=== PATIENT | female | born 1935 | race Caucasian/White ===

== ENCOUNTER 2017-01-16 15:27 | Inpatient (IN) | payer MEDICARE, OTHER ==
[~2017-01-16] VITALS: Ht 167.6 cm; Wt 99.6 kg
[2017-01-16] MEDS ORDERED: LEVO25TA5 PO (15:46)
[2017-01-16] MEDS ORDERED: ALEN70SO PO (15:49)
[2017-01-16] MEDS ORDERED: AMLO10TA2 PO (15:49)
[2017-01-16] MEDS ORDERED: PRIL20TA2 PO (15:49)
[2017-01-16] MEDS ORDERED: ATEN100T PO (15:49)
[2017-01-16] MEDS ORDERED: LISI20TA3 PO (15:49)
[2017-01-16] MEDS ORDERED: ASPI81TA85 PO (15:49)
[2017-01-16] MEDS ORDERED: ONDANSETRON 4MG/2ML VIAL (J2405) IV ONE (16:45)
[2017-01-16] MEDS ORDERED: NS 1,000 ML IV ONE ×3 (16:45→18:30)
[2017-01-16 17:34] LABS: ALBUMIN 3.8 GM/DL (3.2-5.2); ALBUMIN/GLOBULIN RATIO 0.88 (1.00-1.93); ALKALINE PHOSPHATASE 73 U/L (45-117); ALT/SGPT 23 U/L (12-78); AMYLASE 58 U/L (25-115); ANION GAP 13 MEQ/L (8-16); AST/SGOT 12 U/L (15-37); BILIRUBIN,DIRECT 0.2 MG/DL (0.0-0.2); BLOOD UREA NITROGEN 38 MG/DL (7-18); CALCIUM LEVEL 8.6 MG/DL (8.8-10.2); CARBON DIOXIDE LEVEL 22 MEQ/L (21-32); CHLORIDE LEVEL 102 MEQ/L (98-107); CREATININE FOR GFR 1.49 MG/DL (0.55-1.02); GLOMERULAR FILTRATION RATE 35.8 (>32); GLUCOSE, FASTING 210 MG/DL (83-110); POTASSIUM SERUM 3.8 MEQ/L (3.5-5.1); SODIUM LEVEL 137 MEQ/L (136-145); TOTAL PROTEIN 8.1 GM/DL (6.4-8.2)
[2017-01-16] MEDS ORDERED: LANS30CA PO (17:59)
[2017-01-16] MEDS ORDERED: ALEN70TA39 PO (18:01)
[2017-01-16 18:08] LABS: ADD MANUAL DIFFER YES; DIFF SLIDE NUMBER 284; MEAN CORPUSCULAR HEMOGLOBIN 30.4 pg (27.0-33.0); MEAN CORPUSCULAR HGB CONC 33.1 g/dl (32.0-36.5); MEAN CORPUSCULAR VOLUME 91.8 fl (80.0-96.0); PLATELET COUNT, AUTOMATED 269 k/mm3 (150-450); WHITE BLOOD COUNT 12.1 K/mm3 (4.0-10.0)
--- NOTE | 2017-01-16 18:08 | REP ---
AP PORTABLE CHEST: 01/16/2017. Comparison: None. Clinical history: Vomiting and diarrhea. Findings: Lungs are mildly hyperinflated with underlying interstitial fibrosis and COPD. Pulmonary arteries mildly prominent. There is no pleural effusion, dense consolidation or parenchymal mass. No pulmonary nodules are seen. No apical scarring or pneumothorax. Heart size not enlarged for this portable technique. The aorta is mildly tortuous at the arch. Airway intact. No mediastinal or hilar mass. The bony thorax shows no acute finding. AC joints and shoulder joints with degenerative change. No free air. Impression: 1. COPD and some fibrotic changes with gross cardiomegaly, vascular redistribution or pulmonary edema. No visible effusion. Signed by Luc Carver MD 01/16/2017 09:26 P
[2017-01-16 18:12] LABS: BANDS 23 % (< 11)
[2017-01-16] MEDS ORDERED: PIPERACILLIN/TAZOBACTAM SOD 4.5 GM in D5W MINI-BAG PLUS 50 ML IV ONE (18:30)
--- NOTE | 2017-01-16 18:44 | ECGEPIP ---
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
[2017-01-16 18:47] LABS: INR 0.94
[2017-01-16 18:50] LABS: ABG BASE EXCESS -4.2 (-2.0-2.0); ABG PARTIAL PRESSURE CO2 34.9 mmHg (35.0-45.0); ABG PARTIAL PRESSURE O2 70.6 mmHg (75.0-100.0); ABG TOTAL CO2 21.1 MEQ/L (23.0-31.0); ABG pH (ARTERIAL) 7.377 UNITS (7.350-7.450)
[2017-01-16] MEDS ORDERED: NS 1,000 ML IV SCH (18:51)
[2017-01-16] MEDS ORDERED: ACETAMINOPHEN TAB 650MG DOSE (2X325MG) PO PRN (19:00)
[2017-01-16] MEDS ORDERED: ONDANSETRON 4MG/2ML VIAL (J2405) IV PRN (19:00)
--- NOTE | 2017-01-16 19:24 | HPEPDOC ---
Medical History and Physical Date of Admission Jan 16, 2017 at 18:51 History and Physical PRIMARY CARE PROVIDER: PCP in [place] ATTENDING: Dr. Abbi Marmolejo CHIEF COMPLAINT: Nausea/vomiting/diarrhea HISTORY OF PRESENT ILLNESS: This is a 81-year-old female past history of hypertension who presents complaining of nausea/vomiting/diarrhea. Patient states she was at a family reunion yesterday when she had macaroni and cheese salad as well as chicken wings. Patient states that night she started to have abdominal discomfort. This morning she started to have nausea/nonbilious nonbloody vomiting, as well as watery diarrhea. No hematochezia or melanotic stools. Patient denies any abdominal pain at this point. The nausea vomiting and diarrhea have subsided. Patient denies any chest pain/redness of breath/palpitations. States she had a previous episode of food poisoning when she was in [place] last year. In the ED patient was found to be very dehydrated, with a lactic acid of 4.1. She has been started on IV fluids as well as Zosyn. PAST MEDICAL HISTORY: As per HPI PAST SURGICAL HISTORY: Breast lumpectomy SOCIAL HISTORY: Tobacco, alcohol, illicit drug use. 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 FAMILY HISTORY: Noncontributory ALLERGIES: Please see below. REVIEW OF SYSTEMS: HEENT: Denies sore throat/headache CARDIOVASCULAR: Denies chest pain/palpitations RESPIRATORY: Denies shortness of breath/cough GASTROINTESTINAL: + nausea/vomiting GENITOURINARY: Denies dysuria/urinary urgency. MUSCULOSKELETAL: Denies myalgias/arthralgias NEUROLOGICAL: Denies any focal weakness HOME MEDICATIONS: Please see below. PHYSICAL EXAMINATION: Vitals: (see below) General: No acute distress, laying comfortably in bed. HEENT: Moist mucous membranes. Neck: No JVD or lymphadenopathy Cardiac: RRR, No murmurs Pulm: Clear to auscultation b/l. No wheezing, rhonchi Abd: NT/ND + BS Ext: No edema or cyanosis LABORATORY DATA: See below. IMAGING: MICROBIOLOGY: Please see below. ASSESSMENT/PLAN: 1. Lactic acidosis and leukocytosis/bandemia- likely secondary to gastroenteritis and severe dehydration. Given the patient's lactic acidosis, we 'll start the patient on Zosyn. No abdominal pain at this point. Diarrhea has subsided. No nausea or vomiting at this point. I will continue with IV fluids and trend lactic acid level. We'll check a VBG. Blood cultures sent. The patient did not have any urine outputs for a urine culture but that will be sent once the patient is hydrated. 2. Hypertension- we will hold patient's home meds at this time given her relative hypotension. DVT prophylaxis- enoxaparin Patient is followed by Dr. Abbi Marmolejo starting 01/17/17 at 7 AM. Vital Signs Vital Signs Date Time Temp Pulse Resp B/P (MAP) Pulse Ox O2 Delivery O2 Flow Rate FiO2 01/16/17 18:29 98.3 01/16/17 17:57 84 90 01/16/17 15:41 16 Room Air Laboratory Data Labs 24H Laboratory Tests 2 01/16/17 16:53: Neutrophils 62, Band Neutrophils 23H, Lymphocytes (Manual) 4L, Monocytes (Manual ) 9H, Metamyelocytes 2H, Platelet Estimate NORMAL, Red Blood Cell Morphology NORMAL, Prothrombin Time 12.7, Prothromb Time International Ratio 0.94, Activated Partial Thromboplast Time 26.2L, Anion Gap 13, Glomerular Filtration Rate 35.8, Lactic Acid Level 4.1*H, Calcium Level 8.6L, Aspartate Amino Transf ( AST/SGOT) 12L, Alanine Aminotransferase (ALT/SGPT) 23, Alkaline Phosphatase 73, Total Bilirubin 1.0, Direct Bilirubin 0.2, Total Protein 8.1, Albumin 3.8, Albumin/Globulin Ratio 0.88L, Amylase Level 58, Lipase 111 01/16/17 18:47: Blood Gas Bicarbonate Standard 21.0L, Arterial Blood pH 7.377, Arterial Blood Partial Pressure CO2 34.9L, Arterial Blood Partial Pressure O2 70.6L, Arterial Blood Total CO2 21.1L, Arterial Blood HCO3 20.0L, Arterial Blood Base Excess - 4.2L, Arterial Blood Oxygen Saturation 94.2L CBC/BMP Laboratory Tests 01/16/17 16:53 Red Blood Count 5.80 H, Mean Corpuscular Volume 91.8, Mean Corpuscular Hemoglobin 30.4, Mean Corpuscular Hemoglobin Concent 33.1, Red Cell Distribution Width 13.0 Microbiology Microbiology 01/16/17 Blood Culture, Received Pending 01/16/17 Blood Culture, Received Pending Home Medications Scheduled (Lisinopril/Hydrochlorothi 20-25 mg) 1 Tab Tab, 1 TAB PO QHS Alendronate Sodium (Alendronate Sodium) 70 Mg Tab, 70 MG PO QWEEK THURSDAYS, PT HAS NOT TAKEN IN A COUPLE WEEKS Amlodipine Besylate (Amlodipine Besylate) 10 Mg Tab, 10 MG PO QHS Aspirin (Aspir-81) 81 Mg Tab, 81 MG PO QHS Atenolol (Atenolol) 100 Mg Tab, 100 MG PO QHS Lactobacillus Acidophilus (Bacid) 1 Tab Tab, 1 TAB PO TID Lansoprazole (Lansoprazole) 30 Mg Cap, 30 MG PO QHS Levothyroxine Sodium (Synthroid) 25 Mcg Tab, 25 MCG PO QHS Vancomycin HCl (Vancomycin HCl) 250 Mg/5 Ml Soln, 250 MG PO Q6H Allergies Coded Allergies: Procaine (Verified Allergy, Mild, 01/16/17) ROSA DOSS MD Jan 16, 2017 19:24
[2017-01-16 21:20] VITALS: BP 138/67
[2017-01-17] VITALS (7 sets, daily range): BP systolic 114–147; BP diastolic 57–77
[2017-01-17 04:37] LABS: MEAN CORPUSCULAR HGB CONC 32.6 g/dl (32.0-36.5); MEAN CORPUSCULAR VOLUME 92.2 fl (80.0-96.0); PLATELET COUNT, AUTOMATED 201 k/mm3 (150-450); WHITE BLOOD COUNT 5.6 K/mm3 (4.0-10.0)
[2017-01-17 05:01] LABS: CALCIUM LEVEL 7.2 MG/DL (8.8-10.2); CREATININE FOR GFR 1.04 MG/DL (0.55-1.02); GLOMERULAR FILTRATION RATE 54.3 (>32); POTASSIUM SERUM 3.5 MEQ/L (3.5-5.1)
[2017-01-17 08:53] LABS: ALBUMIN/GLOBULIN RATIO 0.8 (1.00-1.93); BILIRUBIN,TOTAL 0.5 MG/DL (0.2-1.0); MAGNESIUM LEVEL 1.9 MG/DL (1.8-2.4)
[2017-01-17 08:59] LABS: BASO # 0.2 K/mm3 (0.0-0.2); BASO % 2.3 % (0.0-1.0); EOS % 0.6 % (0.0-3.0); LARGE UNSTAINED CELL # 0.2 K/mm3 (0.0-0.4); LARGE UNSTAINED CELL % 2.7 % (0.0-4.0); LYMPH # 0.8 K/mm3 (1.5-4.5); LYMPH % 12.7 % (24.0-44.0); MONO # 0.9 K/mm3 (0.0-0.8); MONO % 14.6 % (0.0-5.0); NEUTROPHILS # 4.3 K/mm3 (1.8-7.7); NEUTROPHILS % 67.1 % (36.0-66.0)
[2017-01-17 09:08] LABS: ALBUMIN 2.8 GM/DL (3.2-5.2); TOTAL PROTEIN 6.3 GM/DL (6.4-8.2)
[2017-01-17] MEDS: ENOXAPARIN 40 MG/0.4 ML SYRINGE (J1650) SC SCH (09:33)
[2017-01-17 10:55] LABS: BANDS 12 % (< 11)
[2017-01-17 10:56] LABS: ANISOCYTOSIS 1+
[2017-01-17] MEDS: LR 1,000 ML IV SCH (14:45)
--- NOTE | 2017-01-17 16:32 | ECGEPIP ---
Stationary ECG Study [facility] Test Date: 2017-01-17 Pat Name: LIEN AYALA Department: Room: [place] [address] Gender: F Web Sizer: : 1935 Requested By: AYANNA BENSON1 Order Number: [id number] Reading MD: Kin Chung Measurements Intervals [place] Rate: 67 P: -38 ND: 154 QRS: 17 QRSD: 98 T: 30 QT: 415 QTc: 439 Interpretive Statements Normal sinus rhythm Borderline first-degree AV block. Somewhat prominent R waves in V2 and V3; Rule out RVH versus prior PWMI Nonspecific ST/T-wave abnormalities Slower heart rate with evolutionary repolarization changes. Clinical correlation advised. Electronically Signed On 01-17-2017 16:31:59 EDT by Kin Chung
--- NOTE | 2017-01-17 16:55 | IPN ---
DATE: 01/16/2017 Patient seen and examined. Continued to report diarrhea, but nausea and vomiting have resolved. Reported having bowel movement every 1-2 hours, but quantity has progressive improved. Denies any chest pain, pressure, discomfort, shortness of breath, fevers or chills. VITAL SIGNS: Temperature 98.6, pulse 77, respirations 18, blood pressure 147/77, pulse oximetry 95% on room air. LABORATORY DATA: WBC 5.6, hemoglobin and hematocrit 13.7/42.1, platelets 201. Chemistry: Sodium 143, potassium 3.5, chloride 111, bicarbonate 21, BUN 33, creatinine 1.04. Repeat lactic acid down to 2.1. C-reactive protein 8.5. PHYSICAL EXAMINATION: GENERAL: Patient comfortable, alert, in no acute distress. HEENT: Normocephalic, atraumatic. Moist mucous membranes. NECK: Supple. CARDIAC: Regular rate and rhythm. Normal S1, S2. ABDOMEN: Soft, nontender. Positive bowel sounds. EXTREMITIES: No clubbing, cyanosis, or edema. ASSESSMENT AND PLAN: This is an 81-year-old female patient with underlying medical history of hypertension, hypothyroidism, came from [place], presented with nausea, vomiting, and diarrhea. 1. Nausea, vomiting, and diarrhea, likely secondary to gastroenteritis with leukocytosis, bandemia, and lactic acidosis. Intravenous (IV) hydration. Patient was on Zosyn. Gastrointestinal (GI) panel, cultures, supportive care, repeat lactic acid. 2. Hypertension. Given patient's blood pressure has improved, we will restart patient on her beta blockers, aspirin, and Norvasc, holding diuretics and angiotensin-converting enzyme (COREY) given evidence of dehydration. Will continue IV fluids. 3. Acute kidney injury (CECY). Follow BUN and creatinine. Improved after IV hydration. 4. Hypothyroidism. Continue Synthroid. 5 Deep vein thrombosis (DVT) prophylaxis. Lovenox subcutaneous. DISPOSITION PLANNING: Pending gastrointestinal (GI) panel. Clinical improvement. Continue current treatment with antibiotics and IV fluids.
[2017-01-17] MEDS: PIPERACILLIN/TAZOBACTAM SOD 3.375 GM in D5W MINI-BAG PLUS 50 ML IV SCH ×2 (17:38→20:46)
[2017-01-17] MEDS ORDERED: ATENOLOL 50 MG TAB PO SCH (21:00)
[2017-01-17] MEDS ORDERED: LEVOTHYROXINE 25MCG TABLET (0.025MG) PO SCH (21:00)
[2017-01-17] MEDS ORDERED: ASPIRIN 81 MG ENTERIC TAB PO SCH (21:00)
[2017-01-17] MEDS ORDERED: amLODIPine 10 MG TAB PO SCH (21:00)
[2017-01-18] VITALS: BP 138/65
[2017-01-18 04:00] VITALS: BP 150/65
[2017-01-18] MEDS: VANCOMYCIN ORAL SOL 250MG/5ML ORAL SYRINGE PO SCH ×2 (05:04)
[2017-01-18 06:25] LABS: MEAN CORPUSCULAR HEMOGLOBIN 30.6 pg (27.0-33.0); MEAN CORPUSCULAR HGB CONC 33.1 g/dl (32.0-36.5); MEAN CORPUSCULAR VOLUME 92.3 fl (80.0-96.0); RED CELL DISTRIBUTION WIDTH 12.9 % (11.5-14.5); WHITE BLOOD COUNT 5.2 K/mm3 (4.0-10.0)
[2017-01-18 06:34] LABS: ALBUMIN 2.7 GM/DL (3.2-5.2); ALBUMIN/GLOBULIN RATIO 0.75 (1.00-1.93); ALKALINE PHOSPHATASE 54 U/L (45-117); ALT/SGPT 22 U/L (12-78); ANION GAP 9 MEQ/L (8-16); AST/SGOT 21 U/L (15-37); BILIRUBIN,TOTAL 0.4 MG/DL (0.2-1.0); BLOOD UREA NITROGEN 14 MG/DL (7-18); CALCIUM LEVEL 7.6 MG/DL (8.8-10.2); CARBON DIOXIDE LEVEL 23 MEQ/L (21-32); CHLORIDE LEVEL 112 MEQ/L (98-107); CREATININE FOR GFR 0.79 MG/DL (0.55-1.02); GLOMERULAR FILTRATION RATE > 60.0 (>32); GLUCOSE, FASTING 81 MG/DL (83-110); POTASSIUM SERUM 3.1 MEQ/L (3.5-5.1); SODIUM LEVEL 144 MEQ/L (136-145); TOTAL PROTEIN 6.3 GM/DL (6.4-8.2)
[2017-01-18] MEDS ORDERED: VANC25SOL PO ×2 (07:35→11:09)
[2017-01-18] MEDS ORDERED: POTASSIUM CHLORIDE 10 MEQ SR TABLET PO ONE (07:45)
[2017-01-18 08:05] VITALS: BP 146/66
[2017-01-18] MEDS: ENOXAPARIN 40 MG/0.4 ML SYRINGE (J1650) SC SCH (08:19)
[2017-01-18] MEDS: LR 1,000 ML IV SCH (08:20)
[2017-01-18 11:30] VITALS: BP 140/68
[2017-01-18] MEDS ORDERED: VANCOMYCIN ORAL SOL 250MG/5ML ORAL SYRINGE PO SCH (12:00)
[2017-01-18] MEDS ORDERED: BACITAB PO (13:58)
[2017-01-18] MEDS ORDERED: LEVO25TA5 PO (14:08)
[2017-01-18] MEDS ORDERED: LISI20TA3 PO (14:08)
[2017-01-18] MEDS ORDERED: ATEN100T PO (14:08)
[2017-01-18] MEDS ORDERED: AMLO10TA2 PO (14:08)
--- NOTE | 2017-01-19 17:02 | DSES ---
DATE OF ADMISSION: 01/16/2017 DATE OF DISCHARGE: 01/18/2017 PRIMARY CARE PROVIDER: In [place] FINAL DIAGNOSES: 1. Clostridium (C) difficile colitis. 2. Hypertension. 3. Acute kidney injury. 4. Hypothyroidism. HISTORY OF PRESENT ILLNESS: This is an 81-year-old female patient with underlying medical history of hypertension, who presented complaining of nausea, vomiting, diarrhea. No belly pain. The patient was visiting [place] from [place] for a family reunion. At the reunion had some macaroni cheese, salad, as well as chicken wings, and stated that at night she started having abdominal discomfort and started having nausea, nonbloody and nonbilious vomiting with watery diarrhea, not melanotic. Nausea and vomiting has improved, but diarrhea persisted. Noted abdominal pain. The patient denies any chest pain, palpitations or shortness of breath. The patient recently has been visiting a relative at a alf in [place]. Given Zosyn in the emergency room and presented with lactic acidosis. HOSPITAL COURSE: The patient was admitted to the hospital. IV fluids and antibiotics have been given. GI panel has been ordered. The patient's laboratories were followed. Repeat lactic acid was ordered. The patient's leukocytosis improved, along with electrolytes and kidney function all improved. Cardiac enzymes were done. C-reactive protein was followed. GI panel returned and showed C difficile. Subsequently, antibiotics were switched to vancomycin. Patient and family services (PFS) has been consulted for prior authorization for vancomycin after searching for pharmacies and prescription was sent to [facility] pharmacy. Probiotic has also been sent. Refill of home blood pressure medication has also been provided. The patient is currently tolerating orally. Bowel movements have improved significantly. She is comfortable, almost back to baseline and ready for discharge for further care as an outpatient. Nausea and vomiting has also resolved. VITAL SIGNS: Temperature 97.5, pulse 64, respirations 18, blood pressure 140/68, pulse oximetry 91% on room air. LABORATORY DATA: WBC 5.2, hemoglobin and hematocrit 13.4/40.6, platelets 212. Chemistry: Sodium 144, potassium 3.1, chloride 112, bicarbonate 32, BUN 14, creatinine 0.79. GENERAL: The patient is alert and oriented times three. No acute distress. HEENT: Normocephalic, atraumatic. PULMONARY: Bilaterally clear to auscultation. CARDIAC: Regular rate and rhythm. Normal S1, S2. ABDOMEN: Soft, nontender. Positive bowel sounds. Is no longer hyperactive. EXTREMITIES: No clubbing, cyanosis or edema. DISCHARGE MEDICATIONS: - lactobacillus one tablet by mouth three times a day - vancomycin 250 mg by mouth every 6 hours for 14 days The patient's home medications of: - alendronate 70 mg by mouth weekly - Norvasc 10 mg by mouth daily - aspirin 81 mg by mouth daily - atenolol 100 mg by mouth at night - lansoprazole 30 mg by mouth at night - Synthroid 25 mcg by mouth at night - bisoprolol/hydrochlorothiazide combination 20/25 mg one tablet by mouth at night DISCHARGE INSTRUCTIONS: The patient is instructed to followup with primary care provider in 7 to 12 days. Return to the hospital if symptoms worsen.
== END 2017-01-18 16:23 | disposition home or self-care (01) | DRG 372 ==
LOC: M ED 15:27 → M ED INP 18:51 → M PCU 21:17
PROVIDERS: ADMIT Internal Medicine; ATTEND Hospitalist
DX: A04.7 Enterocolitis due to Clostridium difficile (principal); E87.2 Acidosis; N17.9 Acute kidney failure, unspecified; E86.0 Dehydration; I10 Essential (primary) hypertension; E03.9 Hypothyroidism, unspecified; Z79.82 Long term (current) use of aspirin; Z79.899 Other long term (current) drug therapy; Z88.8 Allergy status to other drugs, medicaments and biological substances